=== PATIENT | female | born 1960 | race Caucasian/White ===

== ENCOUNTER → 2019-11-09 08:49 | Outpatient (CLI) | payer OTHER, SELFPAY ==
[2019-11-09 08:43] VITALS: BMI 47.5
--- NOTE | 2019-11-09 08:52 | RAD_ITS ---
STUDY: X-RAY - LEFT HAND, ATTENTION INDEX FINGER REASON FOR EXAM: Cyst at the lateral distal tip of the finger. TECHNIQUE: 3 view(s) of the finger were obtained. COMPARISON: None. FINDINGS: Normal visualized metacarpal. Normal metacarpophalangeal joint. Normal proximal phalanx. Normal middle phalanx. Normal distal phalanx. Normal proximal interphalangeal joint. Normal distal interphalangeal joint. RAD/Finger(s) Min 2 Views IMPRESSION: Unremarkable x-ray examination of the left index finger. Electronically Signed: Pablito Montano MD at 12:36 EST Tel , Service support ,
== END ==
PROVIDERS: Referring Provider Orthopaedic Surgery; Visit Provider Orthopaedic Surgery
DX: M67.442 Ganglion, left hand (principal)
CPT/HCPCS: 73140